=== PATIENT | male | born 1990 | race Caucasian/White ===

== ENCOUNTER 2018-02-22 07:55 | Emergency (ER) | payer OTHER ==
--- NOTE | 2018-02-22 08:57 | EDPHY ---
H & P Time Seen by Provider: 02/22/18 08:57 HPI/ROS: CHIEF COMPLAINT: Panic attack HISTORY OF PRESENT ILLNESS: Patient has had this multiple times before including 5 years ago, in November of this summer in [place], and then intermittently for the last past week. He did see his primary care doctor on Thursday who sent labs and was going to refer him today to a reliability specialist in the office. All last night he kept waking up feeling dizzy and tingly and very anxious, he was shaky and he felt like he was"struggling to breathe"but he knew his breathing was just fine. He felt like he might pass out. No chest pain. He felt like he was doing poorly when he showed up here but now he feels back to normal except for he is still a little bit lightheaded. He is a history of asthma but after he quit smoking cigarettes barely uses his inhaler anymore, this does not feel like asthma. REVIEW OF SYSTEMS: Eye: no change in vision ENT: no sore throat Cardiac: no chest pain or syncope Pulmonary: HPI Abdomen: no vomiting, diarrhea, abdominal pain Musculoskeletal: no back pain Skin: no rash Neuro: HPI Constitutional: no fever : no urinary symptoms A comprehensive 10 point review of systems is otherwise negative aside from elements mentioned in the history of present illness. PAST MEDICAL HISTORY: Concussion, asthma Family history: Unknown, adopted Social history: Here with his mom, he thinks that symptoms may be triggered when he drinks alcohol which he did last night. No recent travel or immobilization or surgery, longest car trip recently was to [place] less than [address] General Appearance: Alert and conversant, cooperative. Eyes: No scleral icterus. ENT, Mouth: Normal mucous membranes. No angioedema Respiratory: Normal respiratory effort, breath sounds equal, lungs are clear to auscultation. Speaks in full sentences, no wheezing, no rhonchi or rales. Cardiovascular: Regular rate and rhythm. Gastrointestinal: Abdomen is soft and non tender. Neurological: Alert, face symmetric, normal motor and sensory in extremities. Skin: Warm and dry, no rashes. No urticaria. Musculoskeletal: No peripheral edema. Psychiatric: Not agitated. Emergency Department course/MDM: Patient presents with classic symptoms of panic attack and hyperventilation with tingling and even describe some cramping in his hands in the past. He had normal CBC chemistries and TSH labs drawn on ThursdayFebruary 19. Patient is in agreement with no medications at this time, will call his primary care doctor today, follow-up in the office this week. I think it is unlikely that he has PE, CHF, acute asthma attack, allergic reaction. Smoking Status: Never smoked Constitutional: Initial Vital Signs Temperature (C) 36.7 C 02/22/18 07:58 Heart Rate 118 H 02/22/18 07:58 Respiratory Rate 18 02/22/18 07:58 Blood Pressure 167/95 H 02/22/18 07:58 O2 Sat (%) 100 02/22/18 07:58 O2 Delivery Mode Room Air Allergies/Adverse Reactions: No Known Allergies Allergy (Unverified 02/22/18 07:58) Home Medications: Medication Instructions Recorded Albuterol [Proventil Inhaler HFA 1 - 2 puffs IH Q4H 02/22/18 (*)] Departure - Departure Disposition: Home, Routine, Self-Care Clinical Impression: Panic attack Condition: Good Instructions: Panic Attack (ED) Referrals: Willie Sanders DO [Primary Care Provider] - As per Instructions
[2018-02-22 09:12] VITALS: BP 135/84
== END 2018-02-22 09:12 | disposition home or self-care (01) ==
DX: F41.0 Panic disorder [episodic paroxysmal anxiety] (principal)